=== PATIENT | female | born 1930 ===

== ENCOUNTER 2019-03-31 07:04 | Day surgery (SDC) | payer MEDICARE ==
[~2019-03-31 07:04] MED LIST: Buffered Lidocaine 1% SYRIN* 1 ML/SYRINGE INTRADERM ONE; Dexamethasone IV* 4 MG/ML 1 ML (4 MG) IV SLOW PU ONE; Dexamethasone IV* 4 MG/ML 1 ML (4 MG) ONE; Famotidine IV* 10 MG/ML 2 ML (20 mg) IV ONE; Famotidine IV* 10 MG/ML 2 ML (20 mg) ONE; Lactated Ringers 1000 ML Bag* 1,000 ML IV SCH
[2019-03-31] MEDS ORDERED: Midazolam* 1 MG/ML 2 ML VIAL (2 MG) ONE (08:32)
[2019-03-31] MEDS ORDERED: fentaNYL* 50 MCG/ML 2 ML VIAL (100 MCG VIAL) ONE (08:32)
[2019-03-31] MEDS ORDERED: Lidocaine 0.5%* 50 ML SDV ONE (08:33)
[2019-03-31] MEDS ORDERED: Propofol* 10 MG/ML 20 ML BTL ONE (09:00)
[2019-03-31] MEDS ORDERED: EPHEDrine (Pressors)* 50 MG/ML VIAL ONE (09:13)
[2019-03-31] MEDS ORDERED: Bupivacaine 0.25% SDV* 30 ML ONE (09:19)
[2019-03-31 11:23] VITALS: BP 151/75
--- NOTE | 2019-03-31 21:40 | OP ---
DATE OF OPERATION: 03/31/19 [facility] DATE OF : 34 SURGEON: Justin Irby MD DATABASE DEVELOPER: GEORGI Pozo ANESTHESIOLOGIST: Dr. Traore. ANESTHESIA: General. PRE-OP DIAGNOSIS: Right carpal tunnel syndrome. POST-OP DIAGNOSIS: Right carpal tunnel syndrome. OPERATIVE PROCEDURE: Right endoscopic carpal tunnel release. INDICATIONS: Veronica has the carpal tunnel syndrome, which is pretty severe. She is going to get some relief of night-time symptoms. She also has pretty significant basal joint arthritis, but I think what would give her the most benefit will be a carpal tunnel release, as it is really bothering her a lot at night. So, we talked about risks and benefits, she wanted to proceed. ESTIMATED BLOOD LOSS: 2 mL. COMPLICATIONS: None. FINDINGS: See above and below. DESCRIPTION OF PROCEDURE: Ms. Ruiz was seen in the preoperative holding area. The correct site, side, and procedure were identified. We came back to the operating room. The arm was prepped and draped in the usual fashion and a time-out was performed. The arm was exsanguinated with the Esmarch and the tourniquet was inflated. I made a 1-cm incision just ulnar to the palmaris longus tendon. The distal antebrachial fascia was split bluntly with a tenotomy scissors. A 2-prong skin hook was placed underneath the fascia. The carpal tunnel was dilated and dried out and then the MicroAire endoscopic carpal tunnel system was introduced. When I had in the appropriate location, I elevated the knife and then the release was carried out from distal to proximal. Once I had released the entirety of the ligament and confirmed that, I went ahead and release the distal antebrachial fascia proximally. At this point, everything was looking good. The wound was irrigated out. The skin was closed with 4-0 Prolene suture and Steri-Strips. A soft dressing was applied and she was taken to the recovery room in stable condition. [id number] #: [id number]
== END 2019-03-31 11:15 | disposition home or self-care (01) ==
LOC: OREAST 07:04
PROVIDERS: ATTEND Orthopaedic Surgery Hand Surgery
DX: G56.01 Carpal tunnel syndrome, right upper limb (principal); I10 Essential (primary) hypertension; J45.909 Unspecified asthma, uncomplicated; K21.9 Gastro-esophageal reflux disease without esophagitis; Z87.891 Personal history of nicotine dependence; M19.90 Unspecified osteoarthritis, unspecified site
CPT/HCPCS: J1100; J2250; J2704; J3010; J3490